=== PATIENT | male | born 2000 | race Caucasian/White ===

== ENCOUNTER 2020-10-24 18:59 | Emergency (ER) | payer MEDICAID, OTHER ==
[~2020-10-24] VITALS: Ht 167.6 cm; Wt 56.0 kg
[2020-10-24] MEDS ORDERED: HYDROCODONE/ACETAMINOPHEN 5/325MG TABLET PO ONE (19:30)
[2020-10-24 21:18] VITALS: BP 91/54
== END 2020-10-24 21:21 | disposition home or self-care (01) ==
LOC: ER 18:59
DX: R07.81 Pleurodynia (principal); F41.9 Anxiety disorder, unspecified; V43.52XA Car driver injured in collision with other type car in traffic accident, initial encounter; Y93.89 Activity, other specified; Y92.488 Other paved roadways as the place of occurrence of the external cause
CPT/HCPCS: 71100; 76705; 99284

== ENCOUNTER 2022-11-04 20:59 | Emergency (ER) | payer MEDICAID, OTHER ==
[~2022-11-04] VITALS: Ht 172.7 cm; Wt 59.0 kg
[2022-11-04 21:00] VITALS: O2SAT 98
[2022-11-04 22:29] VITALS: BP 124/77; PULSE 78; RESP 16; TEMP 98.8
== END 2022-11-04 22:38 | disposition home or self-care (01) ==
LOC: ER 20:59
DX: S40.012A Contusion of left shoulder, initial encounter (principal); X58.XXXA Exposure to other specified factors, initial encounter; Y93.89 Activity, other specified; Y92.89 Other specified places as the place of occurrence of the external cause; Y99.8 Other external cause status
CPT/HCPCS: 73000; 99283; A4565